=== PATIENT | male | born 2000 | race Caucasian/White ===

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

== ENCOUNTER 2022-11-05 17:40 | Emergency (ER) | payer OTHER, SELFPAY ==
[2022-11-05 17:41] VITALS: BP 126/96; PULSE 65; RESP 18; TEMP 36.1; O2SAT 98; BMI 28.1
--- NOTE | 2022-11-05 20:14 | EX.ED.DYSGE1 ---
HPI History of Present Illness Chief Complaint: Abd Pain Informant: patient and parent Narrative Narrative: Patient states he started with symptoms about 4 days ago. He started with nausea vomiting and some diarrhea. He had some epigastric pain. He also had nasal congestion and a lot of postnasal drip. He has developed a cough. He was not eating much for couple days. But now he is eating and drinking. In fact he just ate a [employer] make chicken shortly before I saw him. He states he does not think he is nauseated now but he is just not really sure. But his abdomen is not hurting now. He does still have the nasal discharge. He coughs and brings up occasional sputum but not every time. Early on he had been vomiting blood a couple times but it was small amounts. That is not going on anymore. He has not seen blood or black in the bowel movements. He might of had fevers but he is not sure. He knows 2 people with similar illness recently. [facility] Medical History Asthma Depression Home Medications benzonatate 100 mg capsule 100 mg PO DAILY 08/25/21 [History Last Taken Unknown] ondansetron 4 mg disintegrating tablet 4 mg PO Q8H PRN PRN Nausea #10 tabs 11/05/22 [Rx Last Taken Unknown] Allergy/AdvReac Type Severity Reaction Status Date / Time shellfish derived Allergy Rash Verified 11/05/22 17:44 Surgical History s/p left shoulder surgery Social History Smoking Status: Current every day smoker tobacco type: cigarettes and e-cigarettes alcohol intake: never ROS ROS ED Constitutional Constitutional ED: Reports subjective Eyes Eyes: Denies change in vision ENT ENT ED: Reports rhinorrhea and other Details: Nasal congestion and postnasal drip. ; Denies ear pain or sore throat Cardiovascular Cardiovascular: Denies chest pain Respiratory/Chest Respiratory/Chest: Reports cough and sputum; Denies dyspnea Gastrointestinal Gastrointestinal: Reports abdominal pain, diarrhea, nausea and vomiting Genitourinary Genitourinary ED: Denies dysuria Musculoskeletal Musculoskeletal: Reports other Details: Patient is not sure if he has had myalgias. He has had generalized lethargy and been sleeping more. Integumentary Denies rash Neurologic Neurologic: Denies headache(s) Psychiatric Psychiatric: Reports anxiety Endocrine Endocrinology: Denies polydipsia or polyuria Allergic/Immunologic Allergic/Immunologic ED: Denies urticaria EXAM Physical Exam Narrative Exam Narrative: Patient is awake alert no acute distress. There is an empty [employer] bag next to them. He carries on a normal conversation. HEENT: Throat shows minimal if any erythema. No exudate. Voice is normal. He does have nasal congestion. No sinus tenderness. Tympanic membranes are normal. Eyes show no icterus Neck shows no JVD or lymphadenopathy. No stridor. Lungs are clear bilaterally. He does have an occasional cough when I am in the room but no sputum production. I do not hear any wheezing. No pain with deep breath. Heart is regular without murmur gallop or rub. Abdomen is soft and completely nontender. : No CVA or suprapubic tenderness Extremities show no edema or tenderness. Skin shows no rash pallor or diaphoresis. Const Vital Signs: 11/05/22 17:41 Temperature 97 F L Temperature Source Temporal Pulse Rate 65 Respiratory Rate 18 Blood Pressure 126/96 H Blood Pressure Mean 106 Pulse Ox 98 Oxygen Delivery Method Room Air MDM MDM MDM Narrative Medical decision making narrative: Dependent interpretation of the patient's single view AP chest x-ray shows no infiltrate. No pneumothorax. Mediastinum and cardiac silhouette looks normal. Final reading by radiology is normal x-ray examination of the chest. COVID and influenza are negative. I rechecked the patient. He is on his phone at this time. No nausea. He has an occasional nonproductive cough still. However, I think this is most likely viral. He has 2 close contacts with the same symptoms. He should improve with symptomatic treatment. I will write for some Zofran in case his nausea comes back. However, he states he is not nauseated now and he may not need this as it sounds like his symptoms are already improving. Lab Data Attestation: I reviewed the patient's lab results. Radiography Diagnostic Testing: Clinical Impression(s) from Imaging Studies Chest X-Ray 11/05/22 20:20 IMPRESSION: Normal x-ray examination of the chest. Electronically Signed: Mario Serrano MD at 21:19 EST , Discharge Plan Triage Chief Complaint: Abd Pain ED Provider: José Miguel Alexandra Dx/Rx/DC Orders Clinical Impression: Acute viral syndrome, Cough, History of nausea and vomiting Instructions: ED Viral Syndrome (Adult) Prescriptions: New ondansetron [ondansetron] 4 mg tablet,disintegrating 4 mg PO Q8H PRN PRN (Reason: Nausea) Qty: 10 0RF No Action benzonatate 100 mg capsule 100 mg PO DAILY Primary Care Provider: Care Physician,No Primary Referrals: Darnell,Emilee, DO [Med Staff - [employer] Preparation Supervisor] - 3-5 Days if not improving Care Physician,No Primary [Primary Care Provider] - Disposition Disposition: Home, Self Care
--- NOTE | 2022-11-05 20:20 | RAD_ITS ---
STUDY: X-RAY CHEST REASON FOR EXAM: Male, 22 years old. Cough TECHNIQUE: Single AP portable view of the chest. COMPARISON: November 05, 2020 FINDINGS: The lungs are clear and expanded. There is no demonstrated pleural abnormality. Normal size heart. Normal mediastinum and sarah. Normal visualized pulmonary arteries. Normal visualized aortic arch and descending thoracic aorta. Normal visualized thoracic spine. Normal visualized ribs, clavicles, and shoulders. There is no demonstrated abnormality of the visualized soft tissue structures of the upper abdomen. RAD/Chest 1 View (Portable) IMPRESSION: Normal x-ray examination of the chest. Electronically Signed: Mario Serrano MD at 21:19 [facility] ,
[2022-11-05] MEDS: Ondansetron ODT 4 MG Tablet PO (21:13)
== END 2022-11-05 23:02 | disposition home or self-care (01) ==
PROVIDERS: Emergency Provider Emergency Medicine; Visit Provider Emergency Medicine
DX: B34.9 Viral infection, unspecified (principal); R11.2 Nausea with vomiting, unspecified; R10.13 Epigastric pain; R05.9 Cough, unspecified; F17.210 Nicotine dependence, cigarettes, uncomplicated; F17.290 Nicotine dependence, other tobacco product, uncomplicated
CPT/HCPCS: 71045; 87428; 99283

== ENCOUNTER → 2024-05-27 | Outpatient (CLI) | payer OTHER, SELFPAY ==
--- NOTE | 2024-05-27 11:57 | MRI_ITS ---
STUDY: MRI ARTHROGRAM OF THE LEFT SHOULDER REASON FOR EXAM: Male, 24 years old. LT SHOULDER PAIN AND INSTABILITY TECHNIQUE: 10 mL of dilute Clariscan contrast was injected into the left glenohumeral joint. MRI was obtained in all 3 orthogonal planes. In addition, a fat-suppressed T1-weighted sequence was performed with the patient''s arm in the abduction external rotation (ABER) position. COMPARISON: Left shoulder radiographs dated 04/25/2024. FINDINGS: Normal supraspinatus tendon. Normal infraspinatus tendon. Normal subscapularis tendon. Normal teres minor tendon. Normal supraspinatus muscle. Normal infraspinatus muscle. Normal subscapularis muscle. Normal teres minor muscle. There is a tear of the posterior half of the glenoid labrum from the 6 o''clock to 12 o''clock positions (axial T1 series 2 images 8-14; coronal T2 series 4 images 10-15). Normal glenohumeral articulation. Normal humeral head and visualized proximal humerus. Normal intracapsular long biceps tendon. Normal rotator interval. Normal acromioclavicular articulation. There is a Type II morphology (curved), with a neutral orientation. Normal visualized coracohumeral and coracoacromial ligaments. Normal quadrilateral space. Normal axillary space. Normal deltoid muscle. Normal trapezius muscle. MRI/Upper Ext Jt W/Contrast IMPRESSION: Tear of the posterior half of the glenoid labrum from the 6 o''clock to 12 o''clock positions. No rotator cuff tear. Electronically Signed: Antonio Adams MD at 14:24 EDT ,
[2024-05-27] MEDS: Lidocaine 2% (5ml sdv) 5 ML VIAL.MPF INFILT (12:21)
[2024-05-27] MEDS: Iopamidol 10 ML in Syringe 1 EACH 600 ML INTRAARTIC (12:24)
--- NOTE | 2024-05-27 12:30 | RAD_ITS ---
STUDY: X-RAY - LEFT SHOULDER REASON FOR EXAM: Male, 24 years old. ARTHROGRAM TECHNIQUE: 4 view(s) of the shoulder. COMPARISON: None. FINDINGS: Imaging following a left shoulder arthrogram. RAD/Shoulder min 2 Views IMPRESSION: Imaging following a left shoulder arthrogram. Electronically Signed: Otis Weiss MD at 8:09 EDT ,
[2024-05-27] MEDS: Gadoterate Meglumine Diluted 10 ML, Iopamidol 5 ML, Lidocaine 1% (20 ml mdv) 5 ML, Epin... INTRAARTIC (12:50)
--- NOTE | 2024-05-27 13:31 | PRO.PCM_ITS ---
Procedure Report Date of Procedure: 05/27/24 Assessment & Plan Assessment/Plan (1) Other instability, left shoulder: (2) Left shoulder pain: QUALIFIERS: Chronicity: chronic Qualified Code(s): M25.512 - Pain in left shoulder; G89.29 - Other chronic pain PLAN: PROCEDURE: Arthrogram-left shoulder ORDERING PROVIDER: Dr. Galinod INDICATION: Male, 24 years old. Left shoulder pain. 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 1.5 mGy CONSENT: The procedure as well as the benefits and possible complications including bleeding and infection were explained to the patient. Informed consent was obtained. TECHNIQUE: The patient was positioned supine. The overlying skin was prepped and draped in the usual sterile fashion. Following injection of local anesthetic with 2% lidocaine, a 22-gauge spinal needle was positioned under radiographic fluoroscopic localization. Approximately 2 cc of Isovue 300 instilled for localization purposes. Following this, 10 cc of arthrogram contrast (gadoterate, iopamidol, lidocaine, and epinephrine), compounded by pharmacy, was injected. All elements of maximal sterile barrier technique followed. Patient tolerated procedure well. IMPRESSION: Successful fluoroscopic guided left shoulder arthrogram. Procedures Radiology Radiology Xray Procedures: 51302 Arthrogram Shoulder Multi Select Codes Radiology Rad Xray Procedures: 72624-68 Fluoroscopic guidance for needle placement
== END | disposition home or self-care (01) ==
LOC: RAD 11:44
PROVIDERS: Referring Provider Orthopaedic Surgery Sports Medicine; Visit Provider Orthopaedic Surgery Sports Medicine
DX: M25.312 Other instability, left shoulder (principal); M25.512 Pain in left shoulder; G89.29 Other chronic pain
CPT/HCPCS: 23350; 73030; 73222; 77002; Q9967

== ENCOUNTER 2024-06-15 05:26 | Day surgery (SDC) | payer OTHER, BC, SELFPAY ==
[2024-06-15] VITALS (7 sets, daily range): BP systolic 112–123; BP diastolic 56–77; PULSE 59–82; RESP 16–18; TEMP 36.5–37.1; O2SAT 98–100
--- NOTE | 2024-06-15 07:07 | PCM.HP.STD ---
HPI - General HPI Narrative CLAUDIA SAAVEDRA, is a 24 M who presents for left shoulder arthroscopic labral stabilization and repair, posterior tear but will examine full extent of the labrum. RAB, post op instructions and narcotic counselling. Him and his mom understood. Plan for a block. L shoulder marked and confirmed. OK to proceed. No changes to H and P. MR#: [id number] Acct: [id number] Name: CLAUDIA SAAVEDRA Rep #: [id number] : 2000 Provider: Dr. Paulo Galindo MD Age/Sex: 24/M Location: [facility] [place] Status: Signed Intake Vital Signs 04/25/2409:51 05/27/2414:36 Height 5 ft 7 in 5 ft 7 in Intake Visit Reasons: LEFT SHOULDER Accompanied by: Self Allergies No Known Allergies Allergy (Unverified 05/30/24 09:25) Medications ?Medication ?Instructions ?Recorded ?Confirmed ?Type NK 05/30/24 05/30/24 History PFSH Medical History Other instability, left shoulder Asthma Depression Surgical History s/p left shoulder surgery Social History Smoking Status: Current every day smoker tobacco type: cigarettes and e-cigarettes alcohol intake: never HPI LEFT SHOULDER Details: This documentation accurately reflects the service provided and the decisions made by me, Dr. Paulo Galindo MD 05/30/24 0923. Part of today?s visit was documented by [ ], acting as scribe. CLAUDIA SAAVEDRA is a 24 year old M here today for FU L shoulder MRI for posterior instability. It happened twice now. The shoulder was good for many years but he was intoxicated and had a dramatic episode where it came out. Ortho Exam General General: Yes no acute distress Neurologic: Yes alert and Yes oriented x3 Psychologic: Yes reasonable and appropriate Supplemental Info [facility] Imaging Services [facility] [address] [place], [place] [id number] Upper Ext Jt W/Contrast MR#: [id number] Acct: [id number] Name: CLAUDIA SAAVEDRA Rep #: [id number] : 2000 M 24 From: Antonio Adams MD PCP: Care Physician,No Primary Status: REG CLI Study: Upper Ext Jt W/Contrast Date of Exam: 05/27/24 Exam# [id number] Ordering Dr: Paulo Galindo MD STUDY: MRI ARTHROGRAM OF THE LEFT SHOULDER REASON FOR EXAM: Male, 24 years old. LT SHOULDER PAIN AND INSTABILITY TECHNIQUE: 10 mL of dilute Clariscan contrast was injected into the left glenohumeral joint. MRI was obtained in all 3 orthogonal planes. In addition, a fat-suppressed T1-weighted sequence was performed with the patient''s arm in the abduction external rotation (ABER) position. COMPARISON: Left shoulder radiographs dated 04/25/2024. FINDINGS: Normal supraspinatus tendon. Normal infraspinatus tendon. Normal subscapularis tendon. Normal teres minor tendon. Normal supraspinatus muscle. Normal infraspinatus muscle. Normal subscapularis muscle. Normal teres minor muscle. There is a tear of the posterior half of the glenoid labrum from the 6 o''clock to 12 o''clock positions (axial T1 series 2 images 8-14; coronal T2 series 4 images 10-15). Normal glenohumeral articulation. Normal humeral head and visualized proximal humerus. Normal intracapsular long biceps tendon. Normal rotator interval. Normal acromioclavicular articulation. There is a Type II morphology (curved), with a neutral orientation. Normal visualized coracohumeral and coracoacromial ligaments. Normal quadrilateral space. Normal axillary space. Normal deltoid muscle. Normal trapezius muscle. MRI/Upper Ext Jt W/Contrast IMPRESSION: Tear of the posterior half of the glenoid labrum from the 6 o''clock to 12 o''clock positions. No rotator cuff tear. Electronically Signed: Antonio Adams MD at 14:24 EDT , I independently reviewed the imaging. Concur with radiologist report. Coding Level of Care Code Off vis,est,level 4 Diagnoses Chronic left shoulder pain M25.512; G89.29 Chronicity: chronic Other instability, left shoulder M25.312 Assessment and Plan Assessment and Plan (1) Left shoulder pain: Status: Acute Qualifiers: Chronicity: chronic Qualified Code(s): M25.512 - Pain in left shoulder; G89.29 - Other chronic pain Plan: CLAUDIA SAAVEDRA is a 24 year old M here today for FU L shoulder MRI for posterior instability. MRI shows a posterior labral tear. Patient did have surgery many years ago but I think this is a new injury no evidence of bony loss or need for augmentation there I think it is reasonable to perform a soft tissue plication and repair there given many years of good shoulder function and stability after prior operation. I explained the diagnosis prognosis different treatment options including doing nothing physical therapy. Given the patient's young age and demands on the upper extremity this I think would be a moderate to high chance of happening again has happened now twice recently. Surgical option here would be arthroscopic labral stabilization and repair. Could consider bone block augmentation but I think given that there is no bony defects there and he had a good shoulder for many years with a soft tissue operation alone I think it is reasonable to start with. Patient does vape that can increase his chances of infection or other problems. He uses tobacco. Patient understands wished to go ahead with left shoulder arthroscopy, stabilization. Pros and cons risks and benefits were discussed with the patient including but not limited to infection, pain, stiffness, bleeding, damage to surrounding structures, neurovascular injury, recurrence or retear, failure or wear of hardware or fixation, instability, fracture, deep vein thrombosis and pulmonary embolism, anesthetic risks, , patient dissatisfaction, need for further surgery and other risks. Patient understood and wished to proceed with surgery, and signed the informed consent documentation. [facility] Medical History (Updated 06/08/24 @ 14:07 by Neli Louis) Wears glasses Marijuana use Injury of head and neck Syncope Vapes nicotine containing substance Other instability, left shoulder Asthma Home Medications ?Medication ?Instructions ?Recorded ?Last Taken ?Type NK 05/30/24 Unknown History Allergy/AdvReac Type Severity Reaction Status Date / Time No Known Allergies Allergy Verified 06/08/24 13:59 Surgical History s/p left shoulder surgery Social History Smoking Status: Current every day smoker tobacco type: cigarettes and e-cigarettes alcohol intake: never Vital Signs Vital Signs Vital Signs: Weight Weight: 187 lb
--- NOTE | 2024-06-15 07:22 | PCM.PRE.AN2 ---
ASA Classification* ASA Classification ASA Classification: 2 Assessment & Plan Anesthesia* Anesthesia Assessment Anesthesia Assessment: Discussed sedation and/or anesthesia options, risks, benefits, and alternatives with patient/parents/legal guardian/POA. Questions invited. The patient/parents/legal guardian/POA seems to understand and agrees to proceed with anesthesia plan. Reviewed the physical assessment, medical history, allergy history and patient home medications list prior to surgery/procedure/anesthetic and documented any changes. Performed airway and anesthesia risk assessments. Anesthesia Type Anesthesia Type: General (Consented for Block) Anesthesia Focused Assessment* Airway Assessment Mouth opens: >3 cm Mallampati Score: II Focused Labs Anesthesia Preop lab: CBC WBC 9.5 K/mm3 (4.5-13.0) 11/05/20 04:15 RBC 5.28 M/mm3 (4.5-5.1) H 11/05/20 04:15 Hgb 15.0 g/dL (13.0-16.5) 11/05/20 04:15 Hct 43.6 % (36-47) 11/05/20 04:15 Plt Count 300 K/mm3 (150-450) 11/05/20 04:15 CHEMISTRY Potassium 3.4 mmol/L (3.5-5.1) L 11/05/20 04:15 Sodium 140 mmol/L (136-145) 11/05/20 04:15 BUN 9 mg/dL (7-18) 11/05/20 04:15 Creatinine 0.90 mg/dL (0.70-1.30) 11/05/20 04:15 Glucose 106 mg/dL (74-106) 11/05/20 04:15 COAG PT 12.9 SECONDS (11.7-14.9) 11/05/20 04:15 Pre-Assessment Diagnosis/Proposed Procedure Planned Operative Procedure(s): LEFT SHOULDER ARTHROSCOPY STABILIZATION Anesthesia History 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 When Was Last Pacemaker Check QUESTION #4 FULL TEXT: You/Your Family Experience fever (hyperthermia) with Anesthesia Last Oral Intake Last Oral intake: Last Oral Intake NPO since Meds taken in AM with sips of water? Meds patient instructed to take am of surgery PONV PONV - venetian blind installer: PONV - venetian blind installer Female No 06/08/24 14:00 HX of Motion Sickness No 06/08/24 14:00 HX of N/V After Surgery No 06/08/24 14:00 Non-Smoker No 06/08/24 14:00 Duration of Surgery greater Yes 06/08/24 14:00 than 60 minutes Number of Risk Factors 1 06/08/24 14:00 PONV Score Low Risk 06/08/24 14:00 Height & Weight Height & Weight: Anesthesia: Height & Weight Height 5 ft 7 in 05/27/24 14:36 Weight: 84.822 kg 06/14/24 07:53 Respiratory Assessment Respiratory Assessment - venetian blind installer: Respiratory Tract Infection Hx - venetian blind installer Hx Respiratory Tract Infection No 06/08/24 14:00 STOP Sleep Apnea STOP Sleep Apnea - venetian blind installer: STOP Sleep Apnea - venetian blind installer Hx Hypertension No 06/08/24 14:00 Hx Sleep Apnea No 06/08/24 14:00 CPAP BIPAP Do you snore loudly (louder No 06/08/24 14:00 than talking or can be heard Do you often feel tired/ No 06/08/24 14:00 fatigued/ sleepy during daytime? Has anyone observed you stop No 06/08/24 14:00 breathing during sleep? STOP Results Negative 06/08/24 14:00 QUESTION #5 FULL TEXT : Do you snore loudly (louder than talking or can be heard through closed doors)? 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 Specify any problems Hx of Preganancy in last 3 N/A 06/08/24 14:00 Months Nurse Filling Out Transfusion DSCHRIBER 06/08/24 14:00 & Questions: Date: 06/08/24 06/08/24 14:00 Time: 14:01 06/08/24 14:00 Patient unable to answer at this time (ie. confused, unrespo /Reproduction History /Reproductive History - venetian blind installer: /Reproductive Hx- venetian blind installer Hx Now No 06/08/24 14:00 Gestational Age (in weeks): EDC: Hx Hx Para Hx Section SAB No 06/08/24 14:00 Active Medications Active Medications: Current Medications Generic Name Dose Route Start Last Admin Trade Name Freq PRN Reason Stop Dose Admin Cefazolin Sodium 2 gm/ Sodium 110 mls @ 150 mls/hr 06/15/24 07:30 Chloride IV 06/15/24 08:13 PREOP [facility] Medical History Wears glasses Marijuana use Injury of head and neck Syncope Vapes nicotine containing substance Other instability, left shoulder Asthma Home Medications ?Medication ?Instructions ?Recorded ?Last Taken ?Type NK 05/30/24 Unknown History Allergy/AdvReac Type Severity Reaction Status Date / Time No Known Allergies Allergy Verified 06/08/24 13:59 Surgical History s/p left shoulder surgery Social History Smoking Status: Current every day smoker tobacco type: cigarettes and e-cigarettes alcohol intake: never Review of Systems (Anesthesia) ROS Narrative System reviewed and no additional complaints, except as documented.
[2024-06-15] MEDS: Cefazolin 2 GM in 0.9% Normal Saline (100mL Bag) 100 ML IV (07:30)
[2024-06-15] MEDS: Epinephrine (1 mg/ml) 1 MG/ML VIAL (08:00)
--- NOTE | 2024-06-15 09:39 | EX.PCM.DISCH ---
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, pendulums 4x/day, ok for hand wrist elbow rom Dressing / Incision Call your doctor if your incision/area has: Continuous Slow Oozing, Sudden Increased Bleeding, Increased Pain/ Swelling, Increased Redness, Foul Smelling Discharge and Swelling at the incision site Call your doctor if you observe: Fever of 101 or Higher, Coldness, Increased Pain and Numbness or Tingling Change Dressing in: leave in place till F/U Cleanse incision/area with: Do not get Incision Wet Follow Up Care Please Follow Up With: Paulo Galindo MD When: 2 days Test Results: Test results from this visit will be discussed in further detail at your follow-up appointment, if applicable. Discharge Plan Admission Attending Provider: Paulo Galindo Primary Care Provider: Ester Emerson Instructions Patient Instructions: After Shoulder Arthroscopy Print Language: Paraguayan Discharge Orders/Prescriptions Prescriptions: New oxycodone-acetaminophen [Percocet] 5-325 mg tablet 1 tab PO Q4H MDD 6 PRN (Reason: pain) 5 Days Qty: 20 0RF Referrals / Follow Up: Ester Emerson MD [Primary Care Provider] - Disposition Disposition (needs filled in before D/C Order can be placed): Home, Self Care
--- NOTE | 2024-06-15 09:41 | OP.PCM_ITS ---
Problems Associated Problem List Diagnoses (1) Left shoulder pain: (2) Other instability, left shoulder: Report of Operation Date of Procedure: 06/15/24 Pre-Operative Diagnosis: L shoulder instability, labrum tear Post-Operative Diagnosis: same Surgery/Procedure Performed:: L shoulder arthroscopy, labrum stabilization Surgeon: Paulo Galindo Type of Anesthesia: Block,Regional and General Anesthesiologist: Aaron Rich Estimated Blood Loss (mL): 20 Description of Procedure: Patient brought to the operating room theater. Placed supine on the table. General anesthesia induced. 2 g IV Ancef administered prior to the start of the procedure. Patient transferred left side up lateral decubitus beanbag positioner. All bony prominences padded. Axillary roll used. SCDs on the leg. Upper extremity prepped and draped in the usual sterile fashion with chlorhexidine-based prep solution allowing over 3 minutes drying time prior to draping. 10 pounds of inline traction with the arm in 45 degrees of abduction was used. Preoperative timeout performed to confirm the site patient and surger y. Began by inserting the arthroscope through a standard posterior arthroscopy portal. Did a full diagnostic arthroscopy. Established an anterior portal through the rotator interval using inside out spinal needle localization. I placed a cannula through this as well as posteriorly. Cartilage on the glenoid and humeral head grade 1 changes. Biceps tendon appeared normal stable root. Subscapularis and undersurface of the rotator cuff normal. There is a labral tear from 3:00 to 4:00 anteriorly as well as from 6:00 to the 11 o'clock position posteriorly. removed previous sutures from posterior labrum, that were torn. Began by slightly elevated labrum at both tears and then using shaving instrument to stimulate healing and to roughen up the surfaces at the glenoid. No obvious bone loss. I placed 3 Arthrex fiber tack knotless all suture anchors 1.8mm posteriorly at the 7, 930, and 11 oclock positions. This achieved stable repair of the labrum. I then turned my attention anteriorly. I used labral tape and a simple suture configuration as well as a Arthrex push lock 2.4 mm anchor to repair the small anterior labrum tear. This achieved a good solid purchase and repair of the labrum. Arthroscopy pictures taken and saved throughout the case onto the system. Case terminated arthroscope withdrawn pictures taken and saved onto the system. Skin cleaned with wet and dry dressing followed by closure of the portals with 3-0 Monocryl sutures Steri-Strips Adaptic 4 x 4 gauze ABD dressing cloth tape and an abduction pillow sling for the upper extremity. Patient woken up from the general anesthetic transferred off the operating table and taken to postanesthetic care unit in stable condition. All sponge needle instrument counts were correct no complications plan to the patient pendulum exercises sling full-time hand wrist and elbow exercises discharged home according to day surgery criteria and follow-up in the office in 2 days time. CPT 50711 Complications none Admit VTE Documentation VTE Present on Admission: No VTE Mechan Device Prophylaxis: SCD's VTE Pharm Prophylaxis ordered?: No Reason prophylaxis not ordered:: Treatment Not Indicated Procedures Musculoskeletal [id number]: Other Procedure See Report
--- NOTE | 2024-06-15 09:51 | PCM.POST.ANE ---
Anesthesia: Postop Eval I Current Vital Signs Temperature: 97.7 F Pulse Rate: 78 Blood Pressure: 115/65 Respiratory Rate: 16 Pulse Ox: 100 Oxygen Delivery Method: Room Air Assessment Airway patent: Yes Spontaneous unlabored respirations: Yes Mental status: Awake and Calm nausea: No Vomiting: No Anesthesia Complication: No Fluid Hydration Crystalloid volume administer (ml): 1,100 Total IV fluid infused: 1,100 Progress Note Anesthesia document: Postop Eval 1 completed: Yes
--- NOTE | 2024-06-15 16:22 | POSTOPAN2_ITS ---
Anesthesia Postop Eval I Sum Postop Eval Completion status Anesthesia document: Postop Eval 1 completed: Yes Anesthesia Postop Eval I Summary Anesthesia Postop Eval I Summary: Anesthesia Postop Eval I: Assessment Summary Airway patent Yes 06/15/24 09:52 COMMAND AND CONTROL OFFICER.[email or web address] Spontaneous unlabored Yes 06/15/24 09:52 COMMAND AND CONTROL OFFICER.[email or web address] respirations Mental status Awake,Calm 06/15/24 09:52 COMMAND AND CONTROL OFFICER.[email or web address] nausea No 06/15/24 09:52 COMMAND AND CONTROL OFFICER.[email or web address] Vomiting No 06/15/24 09:52 COMMAND AND CONTROL OFFICER.[email or web address] Anesthesia Postop Eval I: Fluid Summary Crystalloid volume administer 1,100 06/15/24 09:52 COMMAND AND CONTROL OFFICER.[email or web address] (ml) Colloids volume administered ( ml) Blood Product volume administered (ml) Total IV fluid infused 1,100 06/15/24 09:52 COMMAND AND CONTROL OFFICER.[email or web address] Anesthesia Postop Eval I: Summary Notes Anesthesia Complication No 06/15/24 09:52 COMMAND AND CONTROL OFFICER.[email or web address] Anesthesia Complication Comment: Post-operative progress note Anesthesia: Postop Eval II Evaluation Mental status: Awake and Calm Pain Level: 1 nausea: No Vomiting: No Complications Anesthesia Complication: No
--- NOTE | 2024-06-15 16:22 | PCM.POSTANE2 ---
Anesthesia Postop Eval I Sum Postop Eval Completion status Anesthesia document: Postop Eval 1 completed: Yes Anesthesia Postop Eval I Summary Anesthesia Postop Eval I Summary: Anesthesia Postop Eval I: Assessment Summary Airway patent Yes 06/15/24 09:52 SPEED BELT [email or web address] Spontaneous unlabored Yes 06/15/24 09:52 SPEED BELT [email or web address] respirations Mental status Awake,Calm 06/15/24 09:52 SPEED BELT [email or web address] nausea No 06/15/24 09:52 SPEED BELT [email or web address].[email or web address] Vomiting No 06/15/24 09:52 SPEED BELT [email or web address].[email or web address] Anesthesia Postop Eval I: Fluid Summary Crystalloid volume administer 1,100 06/15/24 09:52 SPEED BELT [email or web address].[email or web address] (ml) Colloids volume administered ( ml) Blood Product volume administered (ml) Total IV fluid infused 1,100 06/15/24 09:52 SPEED BELT SANDER.[email or web address] Anesthesia Postop Eval I: Summary Notes Anesthesia Complication No 06/15/24 09:52 SPEED BELT SANDER.[email or web address] Anesthesia Complication Comment: Post-operative progress note Anesthesia: Postop Eval II Evaluation Mental status: Awake and Calm Pain Level: 1 nausea: No Vomiting: No Complications Anesthesia Complication: No
== END 2024-06-15 10:35 | disposition home or self-care (01) ==
LOC: SDC 06:47 → AC 06:50
PROVIDERS: PCP Family Medicine; Referring Provider Orthopaedic Surgery Sports Medicine; Visit Provider Orthopaedic Surgery Sports Medicine
PROC: (CPT 29805; principal; 2024-06-15 07:10)
DX: M25.312 Other instability, left shoulder (principal); G89.29 Other chronic pain; J45.909 Unspecified asthma, uncomplicated; F17.210 Nicotine dependence, cigarettes, uncomplicated; F17.290 Nicotine dependence, other tobacco product, uncomplicated
CPT/HCPCS: 29806; 01630; C1713; J7120; J2405

== ENCOUNTER 2024-07-21 11:00 | Outpatient (RCR) | payer OTHER, SELFPAY ==
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
== END 2024-07-21 19:00 | disposition home or self-care (01) ==
LOC: PT 11:00
PROVIDERS: Referring Provider Orthopaedic Surgery Sports Medicine; Visit Provider Orthopaedic Surgery Sports Medicine
DX: M25.312 Other instability, left shoulder (principal); M25.512 Pain in left shoulder; G89.29 Other chronic pain
CPT/HCPCS: 97014; 97110; 97140; 97161; G0283

== ENCOUNTER → 2025-01-21 | Outpatient (CLI) | payer BC, OTHER, SELFPAY ==
--- NOTE | 2025-01-21 10:26 | US_ITS ---
PROCEDURE: EXT NON VASC LIMITED/SOFT TISS 01/21/2025 REASON FOR EXAM: RT CHEST LUMP TECHNIQUE: Ultrasound targeted to the palpable abnormality at the right chest. COMPARISON: None. FINDINGS: Targeted sonogram of the right chest was performed in the area of palpable abnormality. A 3.1 x 3.4 x 0.8 cm heterogeneous mass is present within this region. Differential diagnosis includes, but not limited to lipoma. Recommend further evaluation with MRI chest to rule out other abnormalities. US/Ext Non Vasc Limited/Soft Tiss IMPRESSION: Targeted sonogram of the right chest was performed in the area of palpable abno rmality. A 3.1 x 3.4 x 0.8 cm heterogeneous mass is present within this region. Differential diagnosis includes, but not limite d to lipoma. Recommend further evaluation with MRI chest to rule out other abnormalities. Reading Location: [id number]
== END | disposition home or self-care (01) ==
LOC: US 10:25
PROVIDERS: PCP Internal Medicine; Referring Provider Physician Assistant; Visit Provider Physician Assistant
DX: R22.2 Localized swelling, mass and lump, trunk (principal)
CPT/HCPCS: 76882

== ENCOUNTER 2025-02-16 20:26 | Emergency (ER) | payer BC, OTHER, SELFPAY ==
[2025-02-16 20:27] VITALS: BP 129/54; PULSE 95; RESP 16; TEMP 36.6; O2SAT 98; BMI 29.7
== END 2025-02-16 20:30 | disposition left against medical advice (07) ==
LOC: ED 20:31
DX: S01.111A Laceration without foreign body of right eyelid and periocular area, initial encounter (principal); V49.9XXA Car occupant (driver) (passenger) injured in unspecified traffic accident, initial encounter; S80.811A Abrasion, right lower leg, initial encounter; Z53.21 Procedure and treatment not carried out due to patient leaving prior to being seen by health care provider

== ENCOUNTER 2025-02-16 21:21 | Emergency (ER) | payer BC, OTHER, SELFPAY ==
[2025-02-16 21:21] VITALS: BP 118/60; PULSE 86; RESP 15; TEMP 35.8; O2SAT 98; BMI 29.4
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
--- NOTE | 2025-02-16 22:13 | CT_ITS ---
PROCEDURE: BRAIN/HEAD WITHOUT CONTRAST 02/16/2025 REASON FOR EXAM: INJURY/PAIN TECHNIQUE: Head CT without intravenous contrast. Coronal and Sagittal reconstruction series were provided. One or more dose reduction techniques were used (e.g., Automated exposure control, adjustment of the mA and/or kV according to patient size, use of iterative reconstruction technique. RADIATION DOSE SUMMARY: CTDlvol: 44.99 mGy DLP: 779.24 mGycm COMPARISON: 02/02/2020 CT. FINDINGS: Brain: No evidence of acute hemorrhage or infarction. CSF Spaces: Normal Sinuses/Mastoids: Clear at visualized levels Bones: The calvarial vault and skull base are intact. CT/Brain/Head without Contrast IMPRESSION: NO ACUTE FINDINGS Reading Location: [place] [id number]
[2025-02-16] MEDS: Diphth,Pertuss(Acell),Tet Vac 0.5 ML Vial IM (22:41)
[2025-02-16 23:37] VITALS: BP 115/65; PULSE 74; RESP 16; TEMP 36.6; O2SAT 97
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
== END 2025-02-16 23:38 | disposition home or self-care (01) ==
PROVIDERS: Emergency Provider Emergency Medicine; Visit Provider Emergency Medicine
DX: S80.11XA Contusion of right lower leg, initial encounter (principal); S00.81XA Abrasion of other part of head, initial encounter; V43.62XA Car passenger injured in collision with other type car in traffic accident, initial encounter; Z23 Encounter for immunization; F17.210 Nicotine dependence, cigarettes, uncomplicated; F17.220 Nicotine dependence, chewing tobacco, uncomplicated
CPT/HCPCS: 70450; 90471; 90715; 99282

== ENCOUNTER → 2025-04-28 | Outpatient (CLI) | payer OTHER, SELFPAY ==
--- NOTE | 2025-04-28 13:30 | RAD_ITS ---
PROCEDURE: KNEE 3 VIEWS 04/28/2025 REASON FOR EXAM: KNEE INJURY TECHNIQUE: KNEE 3 VIEWS Laterality: Right knee COMPARISON: None FINDINGS: Bones: No fracture. No suspicious bone lesion. Joints: Normal alignment. Mild degenerative changes. Effusion: No effusion. Soft tissues: Soft tissue swelling. Other: RAD/Knee 3 Views IMPRESSION: NO EFFUSION ACUTE FRACTURE OR DISLOCATION. Reading Location: [id number]
== END | disposition home or self-care (01) ==
LOC: MTRAD 13:29
PROVIDERS: Referring Provider Physician Assistant Surgical; Visit Provider Physician Assistant Surgical
DX: S89.90XA Unspecified injury of unspecified lower leg, initial encounter (principal); X58.XXXA Exposure to other specified factors, initial encounter
CPT/HCPCS: 73562